=== PATIENT | male | born 1985 | race Caucasian/White ===

== ENCOUNTER 2016-10-05 16:14 | Outpatient (CLI) ==
[2015-07-03 09:16] VITALS: BMI 23.7
[2016-10-05 16:59] LABS: COCAIN SCREEN,URINE NEGATIVE (NEGATIVE)
[2016-10-05 17:44] LABS: ALBUMIN 4.2 g/dL (3.4-5.0); ALBUMIN/GLOBULIN RATIO 1.05; ANION GAP 15.8; BILIRUBIN,TOTAL 0.8 mg/dL (0.00-1.20); BUN/CREATININE RATIO 18.44; CALCIUM 9.9 mg/dL (8.2-10.2); CREATININE 1.03 mg/dL (0.60-1.10); POTASSIUM 4.8 mmol/L (3.5-5.1); TOTAL PROTEIN 8.2 g/dL (6.4-8.2)
== END 2016-10-05 16:15 | disposition home or self-care (01) ==
LOC: LAB 16:14
PROVIDERS: ATTEND General Practice
DX: I50.9 Heart failure, unspecified (principal); N19 Unspecified kidney failure; I10 Essential (primary) hypertension; M54.5 Low back pain; Z95.810 Presence of automatic (implantable) cardiac defibrillator
CPT/HCPCS: 36415; 80053; 80306; 82542; 83880

== ENCOUNTER 2016-11-11 15:10 | Outpatient (CLI) ==
[2015-07-03 09:16] VITALS: BMI 23.7
[2016-11-11 18:11] LABS: BASOPHILS # (AUTO) 0.1 K/uL (0-0.2); BASOPHILS % (AUTO) 0.8 % (0.0-3.0); EOSINOPHILS # (AUTO) 0.2 K/ul (0.0-0.7); EOSINOPHILS % (AUTO) 2.7 % (0.0-7.0); HEMATOCRIT 42.9 % (42.0-52.0); HEMOGLOBIN 14.2 g/dl (14.0-18.0); IMMATURE GRANULOCYTE % (AUTO) 0.7 % (0.0-5.0); LYMPHOCYTES # (AUTO) 2.5 K/uL (0.60-3.4); LYMPHOCYTES % (AUTO) 34.9 (10.0-50.0); MEAN CORPUSCULAR HEMOGLOBIN 28.5 pg (27.0-31.0); MEAN CORPUSCULAR HGB CONC 33.1 (31.8-35.4); MONOCYTES # (AUTO) 0.7 K/uL (0.4-2.0); MONOCYTES % (AUTO) 10.3 (0-10); NEUTROPHILS # (AUTO) 3.6 K/ul (2.0-6.9); NEUTROPHILS % (AUTO) 50.6; PLATELET COUNT 356 10^3/uL (140-440); RED BLOOD COUNT 4.99 10^6/ul (4.70-6.10); WHITE BLOOD COUNT 7.08 K/ul (4.2-10.2)
[2016-11-11 18:26] LABS: ALBUMIN 3.7 g/dL (3.4-5.0); ANION GAP 12.7; BUN/CREATININE RATIO 27.47; CALCIUM 9.4 mg/dL (8.2-10.2); CREATININE 0.91 mg/dL (0.60-1.10); PHOSPHORUS 4.8 mg/dL (2.5-4.9); POTASSIUM 4.7 mmol/L (3.5-5.1)
== END 2016-11-11 15:11 | disposition home or self-care (01) ==
LOC: LAB 15:10
PROVIDERS: ATTEND General Practice
DX: I50.9 Heart failure, unspecified (principal); I10 Essential (primary) hypertension; N19 Unspecified kidney failure; F41.9 Anxiety disorder, unspecified; M54.5 Low back pain; F11.90 Opioid use, unspecified, uncomplicated; Z95.810 Presence of automatic (implantable) cardiac defibrillator
CPT/HCPCS: 36415; 80069; 80307; 85025

== ENCOUNTER 2016-12-22 14:52 | Outpatient (CLI) ==
[2015-07-03 09:16] VITALS: BMI 23.7
[2016-12-22 15:58] LABS: COCAIN SCREEN,URINE NEGATIVE (NEGATIVE)
== END 2016-12-22 14:53 | disposition home or self-care (01) ==
LOC: LAB 14:52
PROVIDERS: ATTEND General Practice
DX: F11.90 Opioid use, unspecified, uncomplicated (principal); Z79.891 Long term (current) use of opiate analgesic
CPT/HCPCS: 36415; 80306

== ENCOUNTER 2017-02-16 16:31 | Outpatient (CLI) ==
[2015-07-03 09:16] VITALS: BMI 23.7
--- NOTE | 2017-02-17 08:18 | CT ---
Exam: CT lumbar spine without contrast HISTORY: Myalgia TECHNIQUE: CT of the lumbar spine with multiplanar reformations. FINDINGS: Lumbar spine demonstrates normal alignment. Vertebral body height is maintained. Disc s pace height is maintained. No significant endplate degenerative change. No immediate paravertebral soft tissue abnormalities. No fracture seen on the axial or reformatted images. T12-L1 - L4-L5: Normal L5 S1: There is a generalized disc bulge with possible superimposed right posterior lateral protrus ion effacing the right lateral recess. Minor posterior endplate spondylosis with moderate bilateral foraminal narrowing right greater than left. Impression: 1. At L5- S1 there is a generalized disc bulge with possible right posterolateral protrusion. Corre late for symptoms. MRI would be definitive. 2. Remainder of the levels appear normal.
== END 2017-02-16 16:32 | disposition home or self-care (01) ==
LOC: RAD 16:31
PROVIDERS: ATTEND General Practice
DX: M79.1 Myalgia (principal); M54.5 Low back pain